=== PATIENT | female | born 1970 | race Two or more races ===

== ENCOUNTER 2019-09-13 17:39 | Emergency (ER) | payer SELFPAY ==
[~2019-09-13] VITALS: Ht 157.5 cm; Wt 81.6 kg
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
--- NOTE | 2019-09-13 17:59 | NUR ---
RAIN MURRIETA AT BEDSIDE
[2019-09-13] MEDS ORDERED: KETOROLAC TROMETHAMINE INJ 30 MG/ML VIAL ONE (18:15)
[2019-09-13] MEDS ORDERED: DIAZEPAM 5 MG TABLET ONE (18:15)
[2019-09-13] MEDS ORDERED: DIAZEPAM 5 MG TABLET PO ONE (18:30)
[2019-09-13] MEDS ORDERED: KETOROLAC TROMETHAMINE INJ 60 MG/2 ML VIAL IM ONE (18:30)
--- NOTE | 2019-09-13 19:24 | NUR ---
REPORT GIVEN TO AIDAN COOPER FOR [facility]
--- NOTE | 2019-09-13 19:24 | NUR ---
REPORT RECEIVED FROM ALLISON HADLEY FOR [facility]
--- NOTE | 2019-09-13 19:38 | NUR ---
Patient discharged to home in stable condition. Written and verbal after care instructions given. Patient verbalizes understanding of instruction.Pt ambulatory with a steady gait
[2019-09-13 19:39] VITALS: BP 138/74
== END 2019-09-13 19:40 | disposition home or self-care (01) ==
LOC: ER 17:42
DX: S29.012A Strain of muscle and tendon of back wall of thorax, initial encounter (principal); S76.011A Strain of muscle, fascia and tendon of right hip, initial encounter; S80.02XA Contusion of left knee, initial encounter; S20.219A Contusion of unspecified front wall of thorax, initial encounter; V49.69XA Unspecified car occupant injured in collision with other motor vehicles in traffic accident, initial encounter; Y93.89 Activity, other specified; Y92.413 State road as the place of occurrence of the external cause; Y99.8 Other external cause status
CPT/HCPCS: 71045; 73502; 73564; 93005; 96372; 99284; J1885